=== PATIENT | male | born 1980 | race Hispanic/Latino ===

== ENCOUNTER → 2024-03-04 | Outpatient (CLI) | payer MEDICARE, OTHER ==
[2024-03-04 21:40] VITALS: PULSE 94; RESP 14
[2024-03-04 22:20] VITALS: PULSE 91; RESP 14
[2024-03-04 22:50] VITALS: PULSE 81; RESP 12
[2024-03-04 23:20] VITALS: PULSE 83; RESP 14
[2024-03-04 23:31] VITALS: PULSE 83; RESP 14
[2024-03-05] VITALS (13 sets, daily range): PULSE 74–88; RESP 7–16
== END | disposition home or self-care (01) ==
LOC: SLP 20:12
PROVIDERS: ATTEND Nurse Practitioner Family
DX: G47.33 Obstructive sleep apnea (adult) (pediatric) (principal)
CPT/HCPCS: 95811